=== PATIENT | female | born 1940 | race Caucasian/White ===

== ENCOUNTER 2019-03-05 10:17 | Inpatient (IN) | payer OTHER ==
[2019-02-28 12:43] LABS: HEMATOCRIT 38.6 % (37.0-47.0); HEMOGLOBIN 13.1 gm/dL (12.0-15.0); MCH 29.8 pg (26.0-34.0); MCHC 33.9 g/dL (28.0-37.0); MCV 87.8 fL (80.0-100.0); RBC 4.4 mil/uL (4.20-5.00); RDW 15.1 % (10.5-14.5); WBC 8.5 thou/uL (4.0-11.0)
[2019-02-28 12:43] LABS: URINE BILIRUBIN NEGATIVE (Negative); URINE BLOOD NEGATIVE (Negative); URINE CLARITY CLEAR; URINE COLOR YELLOW; URINE GLUCOSE-RANDOM* NEGATIVE (Negative); URINE KETONES NEGATIVE (Negative); URINE LEUKOCYTES-REFLEX NEGATIVE (Negative); URINE NITRITE-REFLEX NEGATIVE (Negative); URINE PROTEIN (DIPSTICK) NEGATIVE (Negative); URINE UROBILINOGEN 0.2 E.U./dl (0.2-1.0)
[2019-02-28 12:54] LABS: ALBUMIN 3.1 g/dL (3.4-5.0); CALCIUM 8.8 mg/dL (8.5-10.1); CREATININE 0.8 mg/dL (0.6-1.0)
[2019-02-28 12:56] LABS: INR 1.2; PROTIME 12.1 Seconds (9.3-11.4)
--- NOTE | 2019-03-01 08:00 | EKG ---
[place] [address] [facility] [place] [address] ELECTROCARDIOGRAM REPORT Name: CL POOLE Room #: PRE IN M.R.#: [id number] Admission: Attend Phys: Gregory Shoemaker MD Discharge: Date of : 44 Report #: [id number] THIS REPORT FOR: //name// [facility] Test Date: 2019-02-28 Test Time: 12:39:40 Pat Name: CL POOLE Department: Room: Gender: F Prisoner Classification Interviewer: RADHA JUNG : 1940 Requested By: Gregory Shoemaker Order Number: [id number] MD: Lavelle Jones Measurements Intervals Samson Rate: 58 P: 51 SC: 155 QRS: -31 QRSD: 101 T: 53 QT: 439 QTc: 432 Interpretive Statements Sinus rhythm Leftward axis Abnormal R-wave progression, late transition No previous ECG available for comparison Electronically Signed On 03-01-2019 8:00:34 CDT by Lavelle Jones [email or web address] <ELECTRONICALLY SIGNED> By: Lavelle Jones MD, [facility] 03/01/19 0800 [id number] Lavelle Jones MD, FACC /EPI
[~2019-03-05] VITALS: Ht 149.9 cm; Wt 92.1 kg
--- NOTE | ~2019-03-05 | D ---
[facility] [place] [address] DISCHARGE SUMMARY Name: CL POOLE Room #: 426-P [facility] IN M.R.#: [id number] Admission: 03/12/19 Attend Phys: Gregory Shoemaker MD Discharge: 03/16/19 Date of : 44 Report #: [id number] THIS REPORT FOR: //name// CC: Gregory BABIN Physician staff DATE OF SERVICE: 03/15/2019 FINAL DIAGNOSES: 1. End-stage degenerative arthritis, right hip. 2. Obesity. 3. Type 2 diabetes. OPERATIONS AND PROCEDURES: Right total hip arthroplasty. HISTORY OF PRESENT ILLNESS: This very heavy 78-year-old female presents with chronic progressive right hip pain. She is otherwise quite heavy and has some problems with hypertension and mild type 2 diabetes. She has been unable to be with her family due to the progressive problems with the hip and family is anxious to have a hip replacement, so that she could then move back with family where they plan to care for her at home. They all understand this will be a difficult process as she is heavy and weak and has not been fully ambulatory for some time. Nevertheless, we have elected to go ahead with hospital admission for right total hip arthroplasty hoping to improve her quality of life and possibly allow her to resume living with her family, which is what they all desire. HOSPITAL COURSE: The patient was admitted and taken to the operating room on 03/12/2019. She underwent right total hip arthroplasty, which she tolerated well. Postoperatively, her course was largely unremarkable. She was able to advance from IV analgesics to oral analgesics. She was able to resume a regular diet. She was able to resume her other routine medications. She has participated with therapy and has made some progress, although this is difficult given her size and deconditioned state. She is now able to stand and walk a few steps and transfer from bed to chair and commode. She has not yet fully sufficient and independent and not really ready to be home with family assistance only. Therefore, we have elected to go ahead with a period of acute care facility for more aggressive rehabilitation. DISCHARGE MEDICATIONS: Include hydrocodone 10 mg q.6 hours p.r.n. for pain, Lipitor 20 mg daily, Colace 100 mg daily, Pepcid 20 mg b.i.d., gabapentin 200 mg 3 times daily, insulin Lantus 100 units with 10 units subcutaneously at bedtime, metoprolol 25 mg b.i.d., Prozac 40 mg daily, Nystatin powder p.r.n., Lamisil cream to both feet p.r.n., hydrocodone 10/325 mg one-half or one tablet every 6 hours as needed for pain, Lovenox 40 mg subcutaneous daily. [address] [address] DISCHARGE SUMMARY Name: CL POOLE Room #: 426-P DIS IN M.R.#: [id number] Admission: 03/12/19 Attend Phys: Gregory Shoemaker MD Discharge: 03/16/19 Date of : 44 Report #: [id number] DISCHARGE INSTRUCTIONS: She will continue a regular diet. She will continue with aggressive therapy trying to advance toward independent ambulation if possible. We are hoping that she can go home with maximum family assistance in 7-10 days if she makes sufficient progress. By: [id number] Gregory Shoemaker MD /nt
[~2019-03-05 10:17] MED LIST: COLACE100 MG PO; GABAPENTIN 100100 MG PO; HYDROCODON-ACE1 EAC8 PO; HYDROXYZINE HCL25 M1 PO; LAMISIL AT 1% C12 G1 TOP; LANTUS SUBQ; LIPITOR 20 MG T20 M1 PO; MELATONIN3 MG PO; METOPROLOL TART25 MG PO; MOBIC7.5 MG PO; MUCINEX D ER 61 EACH PO; NYAMYC15 GM TOP; ONDANSETRON HCL4 M2 PO; PEPCID20 MG PO; PRESERVISION A1 EAC2 PO; PROBIOTIC1 EAC1 PO; PROZAC20 MG PO; ROBITUSSIN100 MG/53 PO
[2019-03-12 07:51] VITALS: BP 102/57
--- NOTE | 2019-03-12 11:19 | O ---
[facility] [place] [address] OPERATIVE REPORT Name: CL POOLE Room #: 150-2 ADM IN M.R.#: [id number] Admission: 03/12/19 Attend Phys: Gregory Shoemaker MD Discharge: Date of : 44 Report #: [id number] THIS REPORT FOR: //name// CC: Gregory BABIN Physician staff DATE OF SERVICE: 03/12/2019 PREOPERATIVE DIAGNOSIS: End-stage degenerative arthritis, right hip. POSTOPERATIVE DIAGNOSIS: End-stage degenerative arthritis, right hip. PROCEDURE: Right total hip arthroplasty. HISTORY: This obese, frail 78-year-old female has still been moderately active and somewhat independent with family assistance until her right hip pain has become much more severe and incapacitating. Family is now anxious to proceed with total hip arthroplasty hoping that she can achieve sufficient strength and balance so that she can return to her own home with their assistance rather than chronic extended care facility. They understand that she is at significant risk for any surgery given her age, medical comorbidities and obesity. Nevertheless, I think she is an acceptable candidate for right hip replacement surgery. DESCRIPTION OF PROCEDURE: The patient was taken to the operating room where she was placed under general anesthesia. Prophylactic intravenous antibiotics were administered. She was turned to the left lateral decubitus position. The right hip and thigh were meticulously prepped and draped. A slightly curving posterolateral skin incision was made centered over the greater trochanter. This was carried through fascia exposing the posterior aspect of the hip joint. The short external rotators and fascia were taken down and tagged with several #1 Tevdek sutures. The hip was dislocated and a femoral neck osteotomy was performed. The canal was prepared with reamers and hand broaches using the Norwood and Nephew system. A size 12 Synergy broach seemed to fit nicely with satisfactory fit, fill and stability. The neck was trimmed down to an appropriate level. The bone was found to be moderately osteoporotic. There was some fraying and cracking in the posterior aspect of the greater trochanter, but this was small and could be repaired with several Tevdek sutures. The femoral broach was removed and attention directed to the acetabulum. Satisfactory exposure was established. The acetabulum was sequentially reamed, gradually advancing to a size 50 mm reamer. The Norwood and Nephew size 50 StikTite three-hole coated shell was then inserted. This was placed in alignment with her true acetabulum, positioning this in about 20 degrees of anteversion and 45 degrees off vertical. It seated nicely and appeared to be secure. Two screws were also placed through the apex holes with good purchase on periacetabular bone. A 32-mm polyethylene liner was then snapped into place positioning the [address] [address] OPERATIVE REPORT Name: CL POOLE ANN Room #: 150-2 ADM IN M.R.#: [id number] Admission: 03/12/19 Attend Phys: Gregory Shoemaker MD Discharge: Date of : 44 Report #: [id number] 20-degree coleman at about the 9 o'clock posterior position. It also seated nicely and appeared to be secure. The permanent size 12 Synergy porous femoral component was then applied. It was impacted into position, placing this in about 15 degrees of anteversion. It also seated nicely and appeared to be secure. A trial reduction was performed and the +0 mm neck length resulted in satisfactory alignment, range of motion, stability and leg length. The permanent 32 mm cobalt chrome head using a +0 neck length was selected. This was impacted on the Wolfe taper and seated nicely. The hip was then reduced. Alignment, range of motion, stability and leg length were assessed and felt to be satisfactory. The area of cracking and minor fracture at the posterior aspect of the greater trochanter was repaired using several #2 Tevdek sutures. The short external rotators were then repaired back to bone using the #1 Tevdek sutures previously placed in the capsule and short external rotators. This added to hip stability. A single Hemovac was left in the wound exiting through a separate stab incision. The fascia was then closed with multiple #1 Vicryl sutures. The subcutaneous tissues were closed with 0 Monocryl. The skin was closed with skin thanh. A sterile dressing was applied. The patient was awakened and returned to recovery room in good condition. <ELECTRONICALLY SIGNED> By: Gregory Shoemaker MD 03/12/19 1119 [id number] Gregory Shoemaker MD /nt
[2019-03-12 11:37] VITALS: BP 128/69
--- NOTE | 2019-03-12 13:33 | NUR ---
ASSUMED CARE AT 1200, POST OP RIGHT KNEE. SHIFT ASSESSMENT DONE. REPORTED PAIN, PRN PAIN MED GIVEN. REPORTED ITCHING TO IV SITE, PRN MEDS GIVEN. ADVANCED TO REGUALR DIET, TOLEARATING WELL. WILL CONTINUE TO ASSESS AND ASSIST WITH ADLs NEEDED.
--- NOTE | 2019-03-12 14:30 | NUR ---
FAXED FACE SHEET TO BARRY AT [facility] TO HELP WITH MEDICAID APPLICATION. DCP TO FOLLOW.
--- NOTE | 2019-03-12 15:48 | NUR ---
assessment-PT WAS AT [facility] AND WAS DISCHAGED TO [facility] DECEMBER 25. PT'S DTR January. PRIOR PT HAD BEEN STAYING WITH HER DTR & DTR'S BOYFRIEND. PT HAS A SISTER AND HER NIECE TOREY HERE. TOREY IS PT'S DPOA. PT'S GOAL IS TO GAIN HER INDEPENDENCE AGAIN AND GET HER OWN PLACE. PT PLANS TO GO STAY WITH HER SISTER AT [place] IF STRONG ENOUGH. NIECE IS WILLING TO ASSIST NEEDED BUT IS ALSO ASSISTING WITH THE CARE OF HER GRNDMOTHER WHO IS ON HOSPICE AND HAS CANCER. SISTERS HOME HAS A RAMP TO ENTER BUT 5 STEPS TO BEDROOM LEVEL. WILL NEED TO SEE HOW PT DOES WITH THERAPIES & REC. TO ASSIST WITH DC PLANNING. PT WANTS ASSIST IN APPLYING FOR [place] MEDICAID. WILL ASK [facility] TO ASSIST. NIECE HAS SENT OFF FOR PT'S CERTIFICATE. PT HAS 2 SISTERS IN [place], 1 BROTHER IN [place] AND ANOTHER BROTHER IN [place], [place]. SISTERS HOME IS HANDICAPPED ACCESSIBLE WITH GRAB BARS, SHOWER SEAT. PT HAS A GRANDSON IN [place], [place]. FOLLOWING TO [facility] WITH DC PLANNING.
[2019-03-12 17:20] VITALS: BP 124/72
[2019-03-12 20:00] VITALS: BP 107/59
[2019-03-12 23:50] VITALS: BP 132/59
--- NOTE | 2019-03-13 03:52 | NUR ---
Assumed pt care at 1900. Pt is A/OX4,VSS.C/o right hip/bilateral shoulder pain,medicated per EMAR with relief reported. Voiding per bedpan with assist of 2. SHANON dsg in place on Right hip with a Hemovan draining sanguineous drainage. Fall precautions in place. Will continue to monitor pt.
[2019-03-13 04:09] VITALS: BP 146/59
[2019-03-13 05:48] LABS: HEMATOCRIT 31.4 % (37.0-47.0); HEMOGLOBIN 10.4 gm/dL (12.0-15.0); MCH 29.9 pg (26.0-34.0); MCHC 33.3 g/dL (28.0-37.0); MCV 89.9 fL (80.0-100.0); RBC 3.49 mil/uL (4.20-5.00); RDW 15.6 % (10.5-14.5)
[2019-03-13 08:17] VITALS: BP 121/57
--- NOTE | 2019-03-13 14:29 | NUR ---
ASSUMED CARE AT 0700, SHIFT ASSESSMENT DONE, MEDS GIVEN, VSS. DENIES NAUSEA, VOMITING. REPORTED PAIN, PRN PAIN MEDS GIVEN. UP WITH PHYSICAL THERAPHY, SITTING IN THE CHAIR THIS AM. WILL CONTINUE TO ASSESS AND ASSIST WITH ADLs NEEDED.
[2019-03-13 15:53] VITALS: BP 107/44
[2019-03-13 15:57] VITALS: BP 107/44
[2019-03-13 19:29] VITALS: BP 129/69
[2019-03-14 02:44] VITALS: BP 112/43
--- NOTE | 2019-03-14 04:05 | NUR ---
Assumed care at 1900. The pt. is post-op 1-2 days Rt. hip surgery. The pts. VSS at shift start. Oxygen placed on pt. at nite for comfort. At 0100 the pts.VS taken, temp= 101.9 F, pt. face reddened.aw=371/73, p=82, 97% on 2 L nasal cannula, r=20. She c.o. pain "generalized" 03/03 also. She was not resting/sleeping well tonite. Pain med. Hhnhprmjjop97/Apap 325 mg. given at 0115. [employer] called and ordered APAP 325 mg. po x 1. She was encouraged to drink water but pt. sipped only. Re-check of T= 99.0 F at 0300. Bed sahu used and pt. could not void, refused bedside commode tonite. Bladder scan done and 257 cc recorded. Compression boots remain on pt. Will monitor pt.
[2019-03-14 04:06] LABS: GLYCOHEMOGLOBIN (HGB A1C) 5.3 % (4.8-5.6)
[2019-03-14 04:34] VITALS: BP 118/48
[2019-03-14 06:27] LABS: HEMOGLOBIN 9.6 gm/dL (12.0-15.0); MCH 30.6 pg (26.0-34.0); MCHC 34.1 g/dL (28.0-37.0); MCV 89.5 fL (80.0-100.0); RBC 3.13 mil/uL (4.20-5.00); WBC 10.1 thou/uL (4.0-11.0)
[2019-03-14 09:59] LABS: URINE BILIRUBIN NEGATIVE (Negative); URINE BLOOD NEGATIVE (Negative); URINE CLARITY CLEAR; URINE COLOR YELLOW; URINE GLUCOSE-RANDOM* NEGATIVE (Negative); URINE KETONES NEGATIVE (Negative); URINE LEUKOCYTES NEGATIVE (Negative); URINE NITRITE NEGATIVE (Negative); URINE PROTEIN (DIPSTICK) NEGATIVE (Negative); URINE SPECIFIC GRAVITY 1.025 (1.005-1.035); URINE UROBILINOGEN 0.2 E.U./dl (0.2-1.0)
[2019-03-14 16:25] VITALS: BP 132/92
--- NOTE | 2019-03-14 16:29 | NUR ---
BARRY FROM [facility] WILL MEET WITH SHREYAS JACOB TO WORK ON [place] MEDICAID APPLICATION. HAVE LEFT A MESSAGE FOR ROSALEE IN ADMISSIONS AT [facility] TO CHECK ON PT'S MEDICARE DAYS. AWAITING RETURN CALL. PT IS MAKING SLOW PROGRESS WITH THERAPY.
[2019-03-14 20:00] VITALS: BP 127/92
--- NOTE | 2019-03-15 02:14 | NUR ---
ASSUMED CARE FROM DAY SHIFT PT RESTING IN BED NO CONCERNS VOICED RIGHT HIP DRESSING DRY AND INTACT NO SWELLING OR REDNESS NOTED , DENIES PAIN.DISCUSSED PLAN OF CARE AND AGREEABLE. RESTING WELL THROUGHOUT HOURLY ROUNDS , WILL REPORT CHANGES OR ABNORMAL FINDINGS.
[2019-03-15 04:52] VITALS: BP 122/70
[2019-03-15 05:35] LABS: HEMOGLOBIN 9.4 gm/dL (12.0-15.0); MCH 30.2 pg (26.0-34.0); MCHC 33.6 g/dL (28.0-37.0); MCV 89.8 fL (80.0-100.0); RBC 3.12 mil/uL (4.20-5.00); RDW 15.7 % (10.5-14.5); WBC 8.1 thou/uL (4.0-11.0)
[2019-03-15 07:10] VITALS: BP 148/58
--- NOTE | 2019-03-15 13:24 | NUR ---
Nutrition: Pt seen per moderate risk screening, BMI >40 (41 kg/m2), class 3 high risk obesity. Met with pt, sister, and niece prior to lunch. Here for R THR on 03/12 for end stage degenerative arthritis. Hx DM II however A1c well controlled at 5.3% per 03/13 labs. Not on any home DM meds per family. Denies weight loss either. Focused on general healthy eating education, encouraging mindful portions, trying small meals/snacks 4-6x daily, with goal of increased vegetables and 3 food groups/meal for more balance. Activity/exercise encouraged as able as pt progresses safely with therapies. Eating very well, > 80% meal average per the last 3 days. Healthier snacks discussed. Low nutrition risk.
--- NOTE | 2019-03-15 15:22 | NUR ---
FAXED REFERRAL TO [facility] SPOKE WITH RUSSELL IN ADM SHE RECEIVED REFERRAL AND WILL REVIEW. FAXED REFERRAL TO [facility] SPOKE WITH VALENTINO SHE RECEIVED REFERRAL AND WILL REVIEW. FAXED REFERRAL TO [facility] SPOKE WITH PATTI IN ADM HE RECEIVED REFERRAL AND DENIED NO MEDICAID BEDS AVAILABLE. FAXED REFERRAL TO [facility] SPOKE WITH DWIGHT IN ADM HE RECEIVED REFERRAL AND WILL REVIEW. ANTICIPATE DC IN 1-2 DAYS DCP TO FOLLOW.
[2019-03-15 16:19] VITALS: BP 142/50
[2019-03-15 16:22] VITALS: BP 142/50
--- NOTE | 2019-03-15 16:50 | NUR ---
CASEDISCUSSED WITH DR WEINER AND DR CORTEZ WELL PT'S NIECE TOREY AND PT'S SISTER THIS AM. BARRY FROM [employer] HERE THIS AM AND HAS FILED [place] MEDICAID APPLICATION. NIECE PROVIDED WITH SNF LIST AND SHE HAS CHOSEN 7 FACILITIES. DC LEAD PONY RIDER FAXED TO ALL FACILITIES AND WE ARE AWAITING WORD BACK FROM FACILITIES ON ACCEPTANCE. S/W [facility] ADMISSIONS AND ANSWERED QUESTIONS FOR HER AND SHE WILL TAKE REFERRAL TO HER ADMINISTRATION TOMORROW & LET US KNOW SOMETHING AFTER THIS. RECEIVED CALL BACK FROM ROSALEE FERRARA IN ADMISSION AT [facility] AND PT WAS UNDER MEDICARE 12/25-01/22/19.
--- NOTE | 2019-03-15 16:54 | NUR ---
FAXED REFERRAL TO [facility] SHAMEKA GARCIA SPOKE WITH ALANA IN ADM SHE RECEIVED REFERRAL AND WILL REVIEW. FAXED REFERRAL TO [facility] OF LEFT MSG WITH ADM THAT PT TO DC 1-2 DAYS. DCP WILL F/U WITH FACILITY IN THE AM. FAXED REFERRAL TO [facility] ADMISSION DEPT LEFT FOR THE DAY DCP TO F/U WITH FACILITY IN THE AM.
[2019-03-15 18:58] VITALS: BP 142/58
--- NOTE | 2019-03-16 03:29 | NUR ---
ASSUMED PT CARE 1899. PT ALERT ADN ORIENTED. REASSESSMENT COMPLETE. VSS. IV DRESSING C/D/I. REPORTS NAUSEA, SEE EMAR. REPORTS PAIN, SEE EMAR. UP TO BSC WITH MAX ASSIST. LARGE FORMED BM DURING SHIFT. WORKING TOWARD POC. CALL LIGHT AND PERSONAL BELONGINGS WITHIN REACH, WILL CONTINUE POC UNTIL EOS.
[2019-03-16 05:42] VITALS: BP 149/58
[2019-03-16 07:00] VITALS: BP 119/55
[2019-03-16 16:03] VITALS: BP 126/97
--- NOTE | 2019-03-16 17:26 | NUR ---
PT DISCHARGED AT THIS TIME. LEFT W/C VAN TO GO TO [facility]. DISCHARGE PAPERS INCLUDING RX'S SENT WITH PATIENT.
== END 2019-03-16 17:35 | DRG 470 ==
LOC: PRE 10:17 → TBA 03-12 06:10 → 4E 03-12 06:10 → PRE 03-12 10:12 → 4E 03-12 11:31 → PRE 03-12 13:55 → 4E 03-16 17:35
PROVIDERS: Hospitalist; ADMIT Orthopaedic Surgery
PROC: 0SR901Z Replacement of Right Hip Joint with Metal Synthetic Substitute, Open Approach (ICD-10-PCS; principal; 2019-03-12)
DX: M16.11 Unilateral primary osteoarthritis, right hip (principal); Z68.41 Body mass index [BMI] 40.0-44.9, adult; E11.9 Type 2 diabetes mellitus without complications; F32.9 Major depressive disorder, single episode, unspecified; E78.5 Hyperlipidemia, unspecified; E66.01 Morbid (severe) obesity due to excess calories; G47.33 Obstructive sleep apnea (adult) (pediatric); K21.9 Gastro-esophageal reflux disease without esophagitis; I10 Essential (primary) hypertension; Z88.6 Allergy status to analgesic agent; Z79.4 Long term (current) use of insulin
CPT/HCPCS: 10783; 50010; 50101; 50382; 50414; 51412; 53000; 53367; 56521; 56525; 56527; 57095; 62110; 62900; 70005